=== PATIENT | male | born 1975 | race Caucasian/White ===

== ENCOUNTER → 2024-06-12 | Outpatient (CLI) | payer OTHER, SELFPAY ==
--- NOTE | 2024-06-12 07:17 | US_ITS ---
STUDY: RENAL ULTRASOUND - COMPLETE REASON FOR EXAM: Male, 48 [address] OF KIDNEYS TECHNIQUE: Ultrasound evaluation of the kidneys was performed with real-time and static pompa-scale imaging. COMPARISON: None. FINDINGS: RIGHT KIDNEY: Normal location of the right kidney, which is normal in size. The right kidney measures 13.8 cm x 7.2 cm x 6.4 cm. There is a normal cortex of the right kidney. The renal cortex measures 1.9 cm. There is a 3.2 cm x 2.5 cm x 2.1 cm cyst in the upper pole. Adjacent to this, there is a 1.5 cm x 1.9 cm x 1.7 cm cyst. There is also evidence of a 1.2 cm x 1.3 cm x 1.2 cm midpole cyst. There are no right renal calculi. There is no right hydronephrosis. DISTAL RIGHT URETER: There is non-visualization of the distal right ureter. There is no demonstrated right ureterovesical junction calculus. There is a visualized right ureteral jet. LEFT KIDNEY: Normal location of the left kidney, which is normal in size. The left kidney measures 15 cm x 5.7 cm x 6.4 cm. There is a normal cortex of the left kidney. The renal cortex measures 1.9 cm. There is a 4.6 cm x 3.8 cm x 3.7 cm cyst in the lower pole. There are 2 tiny nonobstructive left intrarenal calculi. There is no left hydronephrosis. DISTAL LEFT URETER: There is non-visualization of the distal left ureter. There is no demonstrated left ureterovesical junction calculus. There is a visualized left ureteral jet. BLADDER: The distended urinary bladder has a volume of 213 ml. There is a normal wall thickness of the distended urinary bladder. There is no demonstrated mass within the urinary bladder. There are no demonstrated bladder calculi. US/Kidney and Bladder IMPRESSION: Bilateral renal cysts. Nonobstructive left intrarenal calculi. Electronically Signed: Ronaldo Harris MD at 11:41 EST ,
--- NOTE | 2024-06-12 07:17 | US_ITS ---
STUDY: ABDOMINAL ULTRASOUND - RIGHT UPPER QUADRANT; ELASTOGRAPHY REASON FOR VISIT: Male, 48 years old. Abnormal liver enzymes. TECHNIQUE: Ultrasound evaluation of the right upper quadrant was performed with real-time and static ram-scale imaging. Point quantification shear wave elastography was performed ([email or web address]). TECHNICAL QUALITY: Adequate. COMPARISON: None. FINDINGS: Liver: The liver is mildly enlarged and measures 18.4 cm. There is increased echogenicity consistent with fatty infiltration. The bile ducts are within normal limits. There is hepatic color flow. The direction of portal flow is hepatopetal. There is no demonstrated mass lesion. Median liver stiffness measured 7.7 kPa. Gallbladder: The patient is status post cholecystectomy. Common Bile Duct (C.B.D.): The common bile duct measures 6 mm. Pancreas: The pancreas is obscured due to overlying bowel gas. US/ABD Limited w/ Elastography IMPRESSION: 1. Liver stiffness measures 7.7 kPa compatible with F2-F3 (Mild to moderate liver fibrosis) Metavir score. 2. Fatty infiltration of the liver. Electronically Signed: Ronaldo Harris MD at 11:45 EST ,
== END | disposition home or self-care (01) ==
LOC: US 07:16
PROVIDERS: PCP Nurse Practitioner Gerontology; Referring Provider Nurse Practitioner Gerontology; Visit Provider Nurse Practitioner Gerontology
DX: R94.5 Abnormal results of liver function studies (principal)
CPT/HCPCS: 76705; 76770; 76981